=== PATIENT | female | born 1935 | race Two or more races ===

== ENCOUNTER 2017-12-06 20:41 | Emergency (ER) | payer MEDICARE, OTHER ==
[~2017-12-06] VITALS: Ht 152.4 cm; Wt 65.8 kg
[2017-12-06 20:47] VITALS: Ht 152.4 cm; Wt 65.8 kg
[2017-12-07 00:35] VITALS: BP 126/66
== END 2017-12-07 00:35 | disposition home or self-care (01) ==
LOC: ED 20:41
DX: R07.89 Other chest pain (principal); R07.81 Pleurodynia; W01.0XXA Fall on same level from slipping, tripping and stumbling without subsequent striking against object, initial encounter; Y93.89 Activity, other specified; Y92.89 Other specified places as the place of occurrence of the external cause; Y99.8 Other external cause status

== ENCOUNTER 2018-05-22 19:45 | Emergency (ER) | payer MEDICARE, OTHER ==
[2018-05-22 21:14] VITALS: BP 142/74
== END 2018-05-22 21:14 | disposition home or self-care (01) ==
LOC: ED 19:45
DX: B02.9 Zoster without complications (principal); I10 Essential (primary) hypertension; E11.9 Type 2 diabetes mellitus without complications